=== PATIENT | female | born 1985 | race Caucasian/White ===

== ENCOUNTER 2024-09-25 09:29 | Outpatient (AMB) | payer BC, SELFPAY ==
[2024-09-25 09:53] VITALS: BP 115/73; PULSE 68; RESP 18; TEMP 36.2; O2SAT 98; BMI 31.1
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
== END 2024-09-25 10:21 | disposition home or self-care (01) ==
LOC: HODSOBC 09:29
PROVIDERS: Supervising Provider Obstetrics & Gynecology; Visit Provider Obstetrics & Gynecology
DX: N64.3 Galactorrhea not associated with childbirth (principal); R53.83 Other fatigue; N95.1 Menopausal and female climacteric states; R23.2 Flushing; Z90.710 Acquired absence of both cervix and uterus; Z98.51 Tubal ligation status
CPT/HCPCS: 99203; G0463

== ENCOUNTER → 2024-09-25 | Outpatient (CLI) | payer BC, SELFPAY ==
[2024-09-25 11:56] LABS: Free T3 2.7 pg/mL (2.3-4.2); Free T4 (Free Thyroxine) 1.09 ng/dL (0.89-1.76)
[2024-09-25 11:59] LABS: Follicle Stimulating Hormone 10.75 mIU/mL (See Note)
[2024-09-30 06:43] LABS: Luteinizing Hormone* 5.8 mIU/mL; Prolactin* 3.2 ng/mL
== END | disposition home or self-care (01) ==
LOC: COPL 10:41
PROVIDERS: PCP Internal Medicine; Referring Provider Obstetrics & Gynecology; Visit Provider Obstetrics & Gynecology
DX: Z34.91 Encounter for supervision of normal pregnancy, unspecified, first trimester (principal); R23.2 Flushing; R53.83 Other fatigue; N64.3 Galactorrhea not associated with childbirth
CPT/HCPCS: 36415; 83001; 83002; 84146; 84439; 84443; 84481